=== PATIENT | female | born 1975 | race Caucasian/White ===

== ENCOUNTER 2017-01-28 17:30 | Inpatient (IN) | payer BC ==
--- NOTE | ~2017-01-28 | HP ---
History And Physical [address] [place]. [address] NAME: EDA PORTER : 73 STATUS : ADM IN [facility]#: [id number] AGE: 41 ADM/REG DATE : 01/28/17 MR#: [id number] REPORT SERV DATE: 01/29/17 DICTATED BY: DEBBIE PAREKH DATE: 01/29/17 REPORT STATUS : Draft TRANSCRIBED BY: MODL DATE: 01/29/17 DATE OF ADMISSION: 01/28/2017 CHIEF COMPLAINT: A 41-year-old female presenting with severe right flank pain and urinary tract infection with hematuria. HISTORY OF PRESENTING ILLNESS: The patient's history was obtained through careful interview with the patient and , coupled with review of [facility] medical records. The patient has a longstanding history of recurrent pyelonephritis since 2011 and just on 01/24/2017, she began to have pain reminiscent of recurrence of pyelonephritis. She describes in her left flank, radiating to the anterior portion of her abdomen, a sharp quality, 8-9/10 severity, associated with bladder spasms and worsened by urinating. She started p.o. antibiotic that she had outpatient supply of, but despite this, has had no improvement in her symptoms. On the morning of admission, she awoke from her sleep at 2:30 in the morning with extreme pain and then began to develop bloody urine throughout the day. She also describes severe dysuria. She has developed fevers, chills, rigors, decreased appetite, nausea, but no vomiting. She has felt lightheaded and had "tingling" in all of her extremities. No diarrhea. No shortness of breath. No chest pain. No confusion. REVIEW OF SYSTEMS: Otherwise, 14-point review of systems was obtained and was negative. PAST MEDICAL HISTORY: 1. Recurrent pyelonephritis followed by Dr. Goodman since 2011. She has been to [facility] in [facility] as well. 2. Endometriosis. 3. Autonomic dysfunction. 4. Bradycardia, followed by Dr. Thibodeaux. 5. Bacteremia. 6. Hiatal hernia. PAST SURGICAL HISTORY: 1. Hysterectomy with right oophorectomy. 2. Transplanted ureter after an injury following a hysterectomy. 3. Cholecystectomy. 4. Adhesiolysis. History And Physical [address] [place] [address] NAME: EDA PORTER : 73 STATUS : ADM IN PAT#: [id number] AGE: 41 ADM/REG DATE : 01/28/17 MR#: [id number] REPORT SERV DATE: 01/29/17 DICTATED BY: DEBBIE PAREKH DATE: 01/29/17 REPORT STATUS : Draft TRANSCRIBED BY: WAYNE DATE: 01/29/17 ALLERGIES: NITROGLYCERIN AND ERYTHROMYCIN. SOCIAL HISTORY: No tobacco abuse. No alcohol abuse. Lives in [place], [place]. She is ; has three children, ages 9, 14 and 17. 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 FAMILY HISTORY: Mother with bradycardia. Grandfather with myocardial infarction. CURRENT MEDICATIONS: Include Ceftin 250 mg p.o. b.i.d., estradiol, Linzess 145 mg p.o. daily, Vyvanse 60 mg p.o. daily, Myrbetriq 50 mg p.o. daily, and Aleve p.r.n. PHYSICAL EXAMINATION: VITAL SIGNS: Temperature 98.2, pulse 92, blood pressure 140/81, respiratory rate 16, and O2 saturation 100% on room air. GENERAL: An ill-appearing female, in evidence of some distress secondary to left flank pain. HEENT: Pupils are equal, round, and reactive to light. No conjunctival pallor. No scleral icterus. Nares are patent. Oropharynx is clear of obstruction. Dry mucous membranes. NECK: Trachea midline. No thyromegaly. LYMPH: No cervical lymphadenopathy. No supraclavicular lymphadenopathy. No inguinal lymphadenopathy. RESPIRATORY: Clear to auscultation at bases. No wheezes, rales, or rhonchi. Normal respiratory effort. CARDIOVASCULAR: Regular rate and rhythm. No murmurs, rubs, or gallops. No extremity edema is appreciated. ABDOMEN: Significant left flank tenderness and suprapubic abdominal discomfort with guarding, but no rebound effect. No hepatosplenomegaly. DERMATOLOGICAL: Warm and dry. EXTREMITIES: No pallor. No cyanosis. PSYCHIATRIC: Normal affect. Good mood. Alert and oriented x3. LABORATORY DATA: Urinalysis shows greater than 182 white blood cells, greater than 182 red blood cells. White blood cell count 12.6, hemoglobin 14, hematocrit 41, platelets 199. Sodium 142, potassium 4.2, chloride 125, bicarbonate 32, BUN 18, creatinine 0.67, glucose 96. Liver enzymes within normal limits. Lactic acid 0.7. STUDIES: 1. EKG by my own evaluation shows sinus bradycardia. 2. CT scan of the abdomen without contrast shows no acute intraabdominal process. ASSESSMENT AND PLAN: 1. Sepsis with positive criteria (although relatively mild criteria), including white blood cell count of 12.6, pulse greater than 90, and rigors with fevers. Check blood cultures. Place on IV Rocephin. 2. Pyelonephritis with hematuria. Check urine culture. Place on IV antibiotics. Consult Dr. Goodman, urologist. History And Physical [address] [address] NAME: EDA PORTER : 73 STATUS : ADM IN [facility]#: [id number] AGE: 41 ADM/REG DATE : 01/28/17 MR#: [id number] REPORT SERV DATE: 01/29/17 DICTATED BY: DEBBIE PAREKH DATE: 01/29/17 REPORT STATUS : Draft TRANSCRIBED BY: WAYNE DATE: 01/29/[address] Thibodeaux, tool radial drill press set up operator. L/JUDEL Debbie Parekh M.D. / [id number] CC: Rosalina Gay M.D. David Wendt, M.D. William Young Jr., M.D.
--- NOTE | ~2017-01-28 | DS ---
Discharge Summary [facility] [address] [place]. [address] NAME: EDA GARY : 73 STATUS : DIS IN PAT#: [id number] AGE: 41 ADM/REG DATE : 01/28/17 MR#: [id number] REPORT SERV DATE: 01/31/17 DICTATED BY: DATE: REPORT STATUS : Draft TRANSCRIBED BY: MODL DATE: 01/31/17 ADMISSION DATE: 01/28/2017 DISCHARGE DATE: 01/31/2017 DISCHARGE DIAGNOSES: 1. Pyelonephritis. 2. Hematuria. 3. Bradycardia. 4. Transaminitis. CONSULTING PHYSICIANS: Include Dr. Phillips with Urology, Dr. Thibodeaux with Cardiology. DISCHARGE MEDICATIONS: Include: 1. Ceftin 250 mg p.o. b.i.d. p.r.n. for urinary tract infection symptoms as prescribed by Dr. Goodman prior to admission. We will continue based on Urology's input. 2. Estradiol 0.075 mg patch topical Sunday and Sunday. 3. Linzess 145 mg p.o. at bedtime. 4. Myrbetriq 50 mg p.o. daily. 5. Vitamin A 60 mg p.o. daily. 6. Aleve 220 mg p.o. b.i.d. p.r.n. for pain. Full for full H and P, please refer to Dr. Herson Cutler's dictation on 01/28/2017. Please also see Dr. Mp Phillips's consultation dictation on 01/31/2017. HOSPITAL COURSE/PROBLEM LIST: 1. Pyelonephritis/possible sepsis. The patient is a very complicated urological history with multiple bouts of pyelonephritis as well as sepsis in the past. Apparently, she had a hysterectomy and inadvertently had her ureter cut. She has had many problems since this time. Initially when she was admitted to the hospital, her UA was positive for large amount of leukocyte esterase as well as large amount of blood, was nitrite negative, however, white blood cell count was greater than 182. Therefore, her urine was cultured, and she was started on IV Rocephin. She had a CT scan of the abdomen and pelvis without contrast. Kidneys did not show any evidence of obstruction. She did not have any acute GI or obstruction noted. She had a prior hysterectomy and cholecystectomy noted. The pelvis and urinary bladder were unremarkable. Her urine culture showed no growth and her blood cultures were also negative. The patient did take one dose of Ceftin p.o. prior to coming to the emergency department. I am not sure this plays a role in her negative cultures since she was having urinary tract infection symptoms, however, I am not clear if this is a true infection or not. Her white blood cell count was not elevated during hospital stay. She was afebrile, therefore she will be discharged, and she will follow up with Dr. Goodman in two weeks postdischarge. If her symptoms continue, she can take her Ceftin p.o. according to Dr. Phillips. 2. Bradycardia. As mentioned above, Dr. Thibodeaux was consulted for bradycardia. Dr. Thibodeaux would like Ms. Gary to follow up with him in an outpatient setting postdischarge; however, he did not recommend any treatment at this time. Heart rate has been 46 [address] [address] NAME: EDA GARY : 73 STATUS : DIS IN PAT#: [id number] AGE: 41 ADM/REG DATE : 01/28/17 MR#: [id number] REPORT SERV DATE: 01/31/17 DICTATED BY: DATE: REPORT STATUS : Draft TRANSCRIBED BY: MODL DATE: 01/31/17 82, again she will follow up with Dr. Thibodeaux as an outpatient. 3. Transaminitis. It was noted on 01/29 that her ALT was 127 and an AST was 94. The patient was taking 650 mg of Tylenol p.o. q.4 hours p.r.n. for pain here in the hospital. After reviewing the patient's medications and discussing with Dr. Lg Galarza, it was decided that the Tylenol was probably causing the problem. We rechecked her AST and ALT on 01/30/2017, and it was trending down with an ALT of 100 and an AST of 49. She will need to follow up with her primary care provider for further management and monitoring of this. CLR/MODL Pablito Fleming NP / [id number] CC: MD Ankit Bunch M.D. David Wendt, M.D. William Young Jr., M.D.
--- NOTE | ~2017-01-28 | CN ---
Consultation Report [facility] [address] [place]. [address] NAME: EDA GARY : 73 STATUS : ADM IN PAT#: [id number] AGE: 41 ADM/REG DATE : 01/28/17 MR#: [id number] REPORT SERV DATE: 01/31/17 DICTATED BY: MP BRICENO III DATE: 01/31/17 REPORT STATUS : Draft TRANSCRIBED BY: MODL DATE: 01/31/17 DATE OF CONSULTATION: 01/31/2017 REQUESTING PHYSICIAN: Dr. Jorge. REASON: Hematuria. HISTORY OF PRESENT ILLNESS: Ms Gary is a 41-year-old white female with a very complicated urological history. She has had a ureteral reimplant and has suffered from recurrent bouts of pyelonephritis. She is admitted now with pyelonephritis and I was asked to see her secondary to hematuria. She is a patient of Dr. Yan Goodman's. She is being prepared for discharge today. PAST MEDICAL HISTORY: Urinary tract infections, hypotension, bradycardia, irritable bowel syndrome, gastroesophageal reflux, pelvic pain, and interstitial cystitis. PAST SURGICAL HISTORY: Hysterectomy, implanted ureter, bladder surgery, defluxing the kidney, ureteral kidney stents, laparoscopy, cholecystectomy, and colonoscopy. HOME MEDICATIONS: Reviewed. ALLERGIES: SHE IS ALLERGIC TO ERYTHROMYCIN AND NITROGLYCERIN. URINE CULTURE EXAM: The patient is awake and alert and is dressed for a discharge. Urine culture from admission was negative. She had taken antibiotics prior to presenting to the emergency room. There is a urinalysis positive for a large amount of blood. ASSESSMENT: 1. Pyelonephritis. 2. Hematuria secondary to #1. RECOMMENDATIONS: 1. Push fluids. 2. Antibiotics as prescribed. 3. Follow up with Dr. Goodman in several weeks. PH/MODL Mp Briceno III, M.D. / [id number]
[2017-01-28 15:30] LABS: BASOPHILS 0.3 %; BASOPHILS ABSOLUTE 0.04 10/3/uL (0.0-0.16); EOSINOPHILS 1.1 %; EOSINOPHILS ABSOLUTE 0.14 10/3/uL (0.0-0.53); ER CBC TAT 0 Hrs 05 Mins; IMMATURE GRANULOCYTES 0.3 %; IMMATURE GRANULOCYTES ABSOLUTE 0.04 10/3/uL (0.0-0.11); LYMPHOCYTES 8.3 %; LYMPHOCYTES ABSOLUTE 1.05 10/3/uL (0.67-4.30); MEAN CORPUS HGB CONC 34.2 g/dL (32.0-36.0); MEAN CORPUSCULAR HEMOGLOB 30.1 pg (26.0-34.0); MEAN CORPUSCULAR VOLUME 88.1 fL (80-100); MEAN PLATELET VOLUME 11.8 fL (9.2-13.0); MONOCYTES 4.5 %; MONOCYTES ABSOLUTE 0.56 10/3/uL (0.21-1.20); NEUTROPHILS 85.5 %; NEUTROPHILS ABSOLUTE 10.75 10/3/uL (2.02-8.40); PLATELET COUNT 199 10/3/uL (150-400); RBC DISTRIBUTION WIDTH 12.5 % (12.0-16.0); RED CELL COUNT 4.62 10/6/uL (4.0-5.6); WHITE BLOOD CELLS 12.6 10/3/uL (4.5-10.5)
[2017-01-28 15:31] LABS: HEMATOCRIT 40.7 % (36.0-48.0); HEMOGLOBIN 13.9 g/dL (12.0-16.0); MANUAL DIFF NO %
[2017-01-28 15:38] LABS: ASCORBIC ACID (UR NOT ORDER) NEG (NEG); BILIRUBIN, URINE NEGATIVE (NEG); ER URINALYSIS TAT 0 Hrs 13 Mins; KETONE, URINE NEGATIVE (NEG); LEUKOCYTE ESTERASE(NOT OR LARGE (NEG); NITRITE (URINE) NEG (NEG)
[2017-01-28 15:40] LABS: WBC (NOT ORDERED) (RFLEX) > 182 (0-5)
[2017-01-28 16:01] LABS: A/G RATIO 1.1 (0.7-1.9); ALKALINE PHOSPHATASE 92 U/L (45-117); BUN (BLOOD UREA NITROGEN) 18 MG/DL (6-23); CALCIUM, SERUM 8.6 MG/DL (8.5-10.4); CHLORIDE, SERUM 105 MMOL/L (96-112); CO2 (CARBON DIOXIDE) 32 MMOL/L (24-34); CREATININE 0.67 MG/DL (0.55-1.02); GFR AFRICAN AMERICAN 126 ML/MIN (>=60); GFR NON AFRICAN AMERICAN 108 ML/MIN (>=60); GLOBULIN 3.5 G/DL (2.5-4.1); GLUCOSE, SERUM 96 MG/DL (60-99); POTASSIUM, SERUM 4.2 MMOL/L (3.5-5.3); SGOT(AST) 15 U/L (5-40); SGPT(ALT) 24 U/L (5-65); SODIUM, SERUM 142 MMOL/L (135-148); TOTAL BILIRUBIN 0.6 MG/DL (0-1.2); TOTAL PROTEIN 7.5 G/DL (6.0-8.5)
[2017-01-28 17:01] LABS: LACTATE 0.7 MMOL/L (0.3-2.4)
[~2017-01-28 17:30] MED LIST: ALEVE220 MG PO; CEFT2 PO; HYDROCORTISONE IM; LINZESS 145 M145 MCG PO; MACROBID PO; MINIVELLE1 EAC2 TOP; MYRBETRIQ50 MG PO; P10 PO; PROBIOTIC PO; SYN.05 PO; VYVANSE30 MG OR; VYVANSE30 MG PO; VYVANSE60 MG PO
[2017-01-29 07:33] LABS: BASOPHILS 0.5 %; BASOPHILS ABSOLUTE 0.04 10/3/uL (0.0-0.16); EOSINOPHILS 2.7 %; HEMATOCRIT 36.1 % (36.0-48.0); HEMOGLOBIN 12.2 g/dL (12.0-16.0); IMMATURE GRANULOCYTES 0.3 %; IMMATURE GRANULOCYTES ABSOLUTE 0.02 10/3/uL (0.0-0.11); LYMPHOCYTES 20.2 %; LYMPHOCYTES ABSOLUTE 1.47 10/3/uL (0.67-4.30); MANUAL DIFF NO %; MEAN CORPUS HGB CONC 33.8 g/dL (32.0-36.0); MEAN CORPUSCULAR HEMOGLOB 29.8 pg (26.0-34.0); MEAN PLATELET VOLUME 11.8 fL (9.2-13.0); MONOCYTES 7.4 %; MONOCYTES ABSOLUTE 0.54 10/3/uL (0.21-1.20); NEUTROPHILS 68.9 %; NEUTROPHILS ABSOLUTE 5.02 10/3/uL (2.02-8.40); PLATELET COUNT 155 10/3/uL (150-400); RBC DISTRIBUTION WIDTH 12.3 % (12.0-16.0); WHITE BLOOD CELLS 7.3 10/3/uL (4.5-10.5)
[2017-01-29 07:40] LABS: INTERNATIONAL NORMAL RATI 1.1 UNITS (-); PARTIAL THROMBO TIME 28.1 SEC (22.5-37.2); PROTIME (NOT ORD) 14.3 SEC (12.0-14.5)
[2017-01-29 07:59] LABS: ALKALINE PHOSPHATASE 94 U/L (45-117); BUN (BLOOD UREA NITROGEN) 15 MG/DL (6-23); CHLORIDE, SERUM 112 MMOL/L (96-112); CO2 (CARBON DIOXIDE) 25 MMOL/L (24-34); CREATININE 0.44 MG/DL (0.55-1.02); GFR AFRICAN AMERICAN 144 ML/MIN (>=60); GFR NON AFRICAN AMERICAN 125 ML/MIN (>=60); GLUCOSE, SERUM 77 MG/DL (60-99); POTASSIUM, SERUM 3.9 MMOL/L (3.5-5.3); SGOT(AST) 94 U/L (5-40); SGPT(ALT) 127 U/L (5-65); SODIUM, SERUM 146 MMOL/L (135-148); TOTAL BILIRUBIN 0.5 MG/DL (0-1.2)
[2017-01-29 08:00] LABS: ALBUMIN 2.9 G/DL (3.5-5.0); CALCIUM, SERUM 7.6 MG/DL (8.5-10.4); GLOBULIN 2.9 G/DL (2.5-4.1); TOTAL PROTEIN 5.8 G/DL (6.0-8.5)
[2017-01-30 09:22] LABS: ALBUMIN 3.2 G/DL (3.5-5.0); ALKALINE PHOSPHATASE 93 U/L (45-117); BUN (BLOOD UREA NITROGEN) 12 MG/DL (6-23); CALCIUM, SERUM 8.1 MG/DL (8.5-10.4); CHLORIDE, SERUM 109 MMOL/L (96-112); CO2 (CARBON DIOXIDE) 27 MMOL/L (24-34); CREATININE 0.54 MG/DL (0.55-1.02); GFR AFRICAN AMERICAN 135 ML/MIN (>=60); GFR NON AFRICAN AMERICAN 116 ML/MIN (>=60); GLOBULIN 3.1 G/DL (2.5-4.1); GLUCOSE, SERUM 91 MG/DL (60-99); POTASSIUM, SERUM 4.1 MMOL/L (3.5-5.3); SGOT(AST) 49 U/L (5-40); SGPT(ALT) 100 U/L (5-65); SODIUM, SERUM 142 MMOL/L (135-148); TOTAL BILIRUBIN 0.4 MG/DL (0-1.2); TOTAL PROTEIN 6.3 G/DL (6.0-8.5)
== END 2017-01-31 15:31 | disposition home or self-care (01) | DRG 872 ==
LOC: ER 17:30 → 7NO 18:52
PROVIDERS: Emergency Medicine; Hospitalist; Nurse Practitioner; Nurse Practitioner Acute Care
DX: A41.9 Sepsis, unspecified organism (principal); R00.1 Bradycardia, unspecified; N12 Tubulo-interstitial nephritis, not specified as acute or chronic; R31.0 Gross hematuria; R74.8 Abnormal levels of other serum enzymes; T39.1X5A Adverse effect of 4-Aminophenol derivatives, initial encounter; Z86.19 Personal history of other infectious and parasitic diseases; Z87.440 Personal history of urinary (tract) infections; Z88.1 Allergy status to other antibiotic agents; Z88.8 Allergy status to other drugs, medicaments and biological substances; Z90.49 Acquired absence of other specified parts of digestive tract; Z90.710 Acquired absence of both cervix and uterus
CPT/HCPCS: 74176; 80053; 81001; 83605; 83690; 83735; 84443; 85025; 85610; 85730; 87040; 87086; 93005; 96374; 96375; 99285; A9270-GY; J2405